=== PATIENT | male | born 1965 | race Caucasian/White ===

== ENCOUNTER 2020-01-07 21:03 | Emergency (ER) | payer MEDICARE, OTHER ==
[~2020-01-07] VITALS: Ht 175.3 cm; Wt 133.4 kg
[~2020-01-07 21:03] MED LIST: ACYCLOVIR400 MG PO; ALBUTEROL SULF8.5 GM INH; AMOXICILLIN500 MG PO; ATENOLOL25 MG PO; BACTRIM DS TAB1 EACH PO; CYMBALTA60 MG PO; FENOFIBRATE160 MG PO; GABAPENTIN300 MG PO; LANTUS100 UNIT/1 SUB-Q; LASIX40 MG PO; LEVOTHYROXINE100 MCG PO; LOVAZA1 GM PO; METFORMIN HCL1000 MG PO; MOTRIN800 MG PO; NORCO 7.5-3251 EACH PO; NORVIR100 MG PO; NOVOLOG100 UNITS/ SUB-Q; OMEPRAZOLE20 MG PO; POTASSIUM CHLO10 MEQ PO; PRAVACHOL40 MG PO; PROAIR HFA8.5 GM IH; PROMETHAZINE-COD5 ML PO; REYATAZ150 MG PO; TRAZODONE HCL150 MG PO; TRUVADA 200 MG1 EACH PO; ZITHROMAX500 MG PO; ZOFRAN ODT8 MG PO
--- OUTSIDE RECORDS SUMMARY | 2020-01-07 21:06 | XMS ---
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 EAntionette VISIT COUNT (12 MO.) 1 PATSY Chua TOTAL 1 NOTE: Visits indicate total known visits. ED/UCC VISIT TRACKING (12 MO.) 01/07/2020 21:03 PATSY Álvarez OR TYPE: Emergency COMPLAINT: - GLF INPATIENT VISIT TRACKING (12 MO.) No inpatient visits to display in this time frame [id number]
[2020-01-07] MEDS ORDERED: BIKTARVY 50-201 EACH PO (21:11)
[2020-01-07] MEDS ORDERED: BUPROPION XL150 MG PO (21:12)
[2020-01-07] MEDS ORDERED: LISINOPRIL20 MG PO (21:12)
[2020-01-07] MEDS ORDERED: ROSUVASTATIN CA20 MG PO (21:13)
[2020-01-07] MEDS ORDERED: VALACYCLOVIR500 MG PO (21:14)
[2020-01-07] MEDS ORDERED: CLONAZEPAM1 MG PO (21:15)
[2020-01-07] MEDS ORDERED: AMITRIPTYLINE H25 MG PO (21:16)
[2020-01-07] MEDS ORDERED: BUSPIRONE HCL5 MG PO (21:16)
[2020-01-07] MEDS ORDERED: FLUOXETINE HCL20 MG PO (21:17)
[2020-01-07] MEDS ORDERED: GABAPENTIN600 MG PO (21:17)
[2020-01-07] MEDS ORDERED: FUROSEMIDE40 MG PO (21:18)
[2020-01-07] MEDS ORDERED: PRAVASTATIN SOD40 MG PO (21:18)
[2020-01-07] MEDS ORDERED: POTASSIUM CHLO10 ME1 PO (21:18)
--- NOTE | 2020-01-08 17:54 | EKG ---
[facility] [address] [facility] [place], [place] [address] Signed Normal sinus rhythm Low voltage QRS Septal infarct , age undetermined Abnormal ECG No previous ECGs available Confirmed by CLAUDETTE CONNELLY MD ([id number]) on 01/08/2020 5:53:48 PM Electronically Signed By: CLAUDETTE CONNELLY MD 01/08/20 1754 PATIENT NAME: JESSENIA DAVENPORT Electrocardiogram DATE OF : 67 PHYSICIAN: CLAUDETTE CONNELLY MD REPORT #: [id number] REPORT IS CONFIDENTIAL AND NOT TO BE RELEASED WITHOUT AUTHORIZATION
== END 2020-01-08 00:03 | disposition home or self-care (01) ==
LOC: ED 21:03
DX: S01.01XA Laceration without foreign body of scalp, initial encounter (principal); F10.10 Alcohol abuse, uncomplicated; W18.30XA Fall on same level, unspecified, initial encounter; E03.9 Hypothyroidism, unspecified; E11.9 Type 2 diabetes mellitus without complications; I10 Essential (primary) hypertension; E78.00 Pure hypercholesterolemia, unspecified; Z87.891 Personal history of nicotine dependence; Z79.899 Other long term (current) drug therapy; Z79.84 Long term (current) use of oral hypoglycemic drugs
CPT/HCPCS: 12002; 70450; 71045; 72125; 80053; 84484; 85025; 93005; 93010; 99284-25

== ENCOUNTER 2020-01-18 13:27 | Emergency (ER) | payer MEDICARE, OTHER ==
[~2020-01-18] VITALS: Ht 175.3 cm; Wt 133.4 kg
[~2020-01-18 13:27] MED LIST changes: +AMITRIPTYLINE H25 MG PO; +BIKTARVY 50-201 EACH PO; +BUPROPION XL150 MG PO; +BUSPIRONE HCL5 MG PO; +CLONAZEPAM1 MG PO; +FLUOXETINE HCL20 MG PO; +FUROSEMIDE40 MG PO; +GABAPENTIN600 MG PO; +LISINOPRIL20 MG PO; +POTASSIUM CHLO10 ME1 PO; +PRAVASTATIN SOD40 MG PO; +ROSUVASTATIN CA20 MG PO; +VALACYCLOVIR500 MG PO
--- OUTSIDE RECORDS SUMMARY | 2020-01-18 13:30 | XMS ---
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 - 2 Visits in 30 Days CARE PROVIDERS YESENIA GAMBOA Nurse Practitioner: 01/11/2020-Current PHONE: Unknown MARYCHYU DURAND [facility] Current PHONE: Unknown Freddy has no Care Guidelines for this patient. Lazaro VISIT COUNT (12 MO.) 2 [facility] TOTAL 2 NOTE: Visits indicate total known visits. 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
== END 2020-01-18 14:08 | disposition home or self-care (01) ==
LOC: ED 13:27
DX: S01.01XD Laceration without foreign body of scalp, subsequent encounter (principal); W18.30XD Fall on same level, unspecified, subsequent encounter

== ENCOUNTER 2020-04-16 14:19 | Inpatient (IN) | payer MEDICARE, OTHER ==
[~2020-04-16] VITALS: Ht 175.3 cm; Wt 90.5 kg
--- OUTSIDE RECORDS SUMMARY | 2020-04-16 14:22 | XMS ---
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 Lazaro VISIT COUNT (12 MO.) 3 PATSY Chua TOTAL 3 NOTE: Visits indicate total known visits. 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
--- NOTE | 2020-04-16 17:45 | NUR ---
PATIENT BROUGHT FROM ED ON VENITALTOR WITH CARDIAC AND VITAL SIGN MONITOR IN PLACE BY THIS NURSE AND JANIYA RT, ON CART. TRANSFERRED FROM CART TO BED, REPOSITIONED AND LINENS REMOVED FROM UNDER PATIENT. PATIENT REMAINS ON VENTILATOR WITH IV MEDICATIONS INFUSING. ASSESSMENT COMPLETED.
--- NOTE | 2020-04-16 19:00 | NUR ---
IN TO SEE PATIENT. PROVIDED VERBAL ORDER TO DC SUICIDE WATCH UNTIL PATIENT IS OFF VENT.
--- NOTE | 2020-04-16 19:15 | NUR ---
UPDATE GIVEN TO POISON CONTROL. Q6H CMP REQUESTED ALONG WITH FREQUENT VS AND QT MONITORING.
--- NOTE | 2020-04-16 20:00 | NUR ---
RASS SCORE -3, KETAMINE AT 0.3 MG/KG. ORAL CARE DONE. PATIENT HAVING SOME COUGHING AND NOT TOLERATING VENT WELL. RR 26 OVER VENT SETTINGS OF 22 BPM. PRN FETANYL PROVIDED. BICARB INFUSING AT 150 ML/HR. IV SITES WNL. ABD IS MODERATELY DISTENDED. BOWEL SOUNDS ACTIVE. OG TUBE IN PLACE. HEEL PROTECTORS ON. PATIENT POSITIONED ON HIS BACK. WRIST RESTRAINTS REMOVED, ROM DONE. PATIENT BACK IN RESTRAINTS. EYE DROPS PROVIDED. HOB GREATER THAN 30 DEGREES. VENT SETTINGS: VT 500, FI02 45%, PEEP 8, RR 22. PIP 22. ETCO2 38.
--- NOTE | 2020-04-16 20:30 | NUR ---
THIRD IV SITE STARTED BY GUICHO SLOAN, LABS DRAWN. LR BOLUS STARTED. DISCUSSED ORAL MEDS WITH TELE PHARMACY. ACCORDING TO THEM THE ACTIVATED CHARCOLE HAS REACHED MAXIMUM EFFECT AND CAN BE REMOVED SO THAT OTHER ORAL MEDS CAN BE PROVIDED WITHOUT BEING BLOCKED BY EFFECTS. OG CONNECTED TO SUCTION AND LARGE AMOUNTS OF BLACK DRAINAGE NOTED. GREATER THAN 900 MLS.
--- NOTE | 2020-04-16 21:07 | NUR ---
PATIENT HAS BEEN HAVING COUGHING/GAGGING EPISODES. OG TUBE RESECURED. APPEARS GOOD PLACEMENT, CONTINUED TO PUT OUT BLACK DRAINAGE WHILE CONNECTED TO SUCTION. PATIENT IS MOVING HIS EYEBROWS IN RESPONCE TO HIS NAME AND APPEARS VERY TENSE. PRN FETANYL PROVIDED. TITRATED KETAMINE BACK TO 0.5 MG/KG.
--- NOTE | 2020-04-16 21:48 | NUR ---
DISCUSSED LAB VALUES AND PATIENT'S CURRENT STATUS WITH MD. ORDERS FOR ABG AND EKG RECEIVED. RT NOTIFIED. PATIENT HAS SETTLED AFTER LAST COUGHING FITS AND PRN SEDATION.
--- NOTE | 2020-04-17 00:49 | NUR ---
PATIENT IS IS HAVING SOME APPARENT INVOLUNTARY MOVEMENTS. DOES NOT RESPOND TO SOUND OR TOUCH. PATIENT IS WARM TO THE TOUCH, AXILLARY TEMP 100.2F. PRN TYLENOL PLACED DOWN THE OG TUBE. PRN FENTANYL PROVIDED AND KETAMINE TITRATED TO 0.8 MG/KG/HR. IV SITES WNL. DAVIDSON HAS 100 MLS VERY CLOWDY URINE WHICH IS CHANGED FROM PREVIOUS TIME. OUTPUT CONTINUES TO BE ABOUT 50 ML/HR.
--- NOTE | 2020-04-17 01:00 | NUR ---
EKG DONE PER POISON CONTROL REQUEST. PATIENT MEETS CRITERIA TO BE OFF BICARB. DISCUSSED WITH AND PATIENT SWITCHED TO LR AT 75 ML/HR. REPORTED SOME MUSCLE TWITCHING AND ONGOING COUGHING/GAGGING. PRN ATIVAN ADDED FOR SEDATION.
--- NOTE | 2020-04-17 02:40 | NUR ---
PATIENT CONTINUES TO BE RESTLESS. NOT FOLLOWING COMMANDS, MOVEMENT SEEMS INVOLUNTARY. PRN ATIVAN GIVEN AND KETAMINE INCREASED TO 1.2 MG/KG/HR. VS STABLE. PATIENT'S AXILLARY TEMP 100.5F. COOL WASH CLOTH APPLIED TO FOREHEAD. PATIENT FEELS HOT TO THE TOUCH. GOOD URINE OUTPUT. IV SITES WNL. SCHEDULED LABS DRAWN FROM IV SITE.
--- NOTE | 2020-04-17 03:48 | NUR ---
PATIENT BECOMING INCREASINGLY RESTLESS. APPEARS INVOLUNTARY MUSCLE MOVEMENTS. UNCHANGED WITH 2MG ATIVAN. PRN FETANYL ALSO PROVIDED. ORAL CARE DONE. PATIENT HAS MINIMAL SECREATIONS. REPOSITIONED TO LEFT SIDE. RESTRAINTS RELEASED, ROM DONE. GOOD URINE OUTPUT. URINE APPEARS MORE CLEAR YELLOW THAN PREVIOUS. VS STABLE. PATIENT CONTINUES TO HAVE ELEVATED AXILLARY TEMP, FRESH COOL WASH CLOTH APPLIED TO FORHEAD.
--- NOTE | 2020-04-17 05:05 | NUR ---
VENT ALARMING FOR LOW VENTALATION/MIN. CUFF LEAK HEARED. CUFF PRESSURE IS 0. PATIENT COUGHING AND JERKING IN THE BED. RT CALLED TO THE ROOM. AIR LEAK CONFIRMED. PRN SEDATION PROVIDED. REPORTED TO . ORDER TO REPLACE TUBE IF NEEDED. TAMMY CORNEJO IN HOUSE, WILL COME TO SEE PATIENT.
--- NOTE | 2020-04-17 05:58 | NUR ---
ET TUBE CHANGED OUT DUE TO AIR LEAK BY TAMMY CORNEJO. 8IN ET 24 @ THE LIP. PATIENT TOLERATED WELL. VS STABLE. SEDATION CONTINUES KETAMINE AT 1.2 MG/KG/HR. LR PER ORDER. SITES WNL. PLACEMENT CONFIRMED BY XRAY. OG TUBE STAYED IN PLACE AND RESECURED. VENT CHECK BY RT. DAVIDSON EMPTIED AT THIS TIME. GOOD URINE OUTPUT.
--- NOTE | 2020-04-17 06:19 | NUR ---
PT CUFF HAD LEAK. ETT TUBE WAS CHANGED TO SIZE 8, 24 @ LIP
[2020-04-17] MEDS ORDERED: HYDROXYZINE HCL25 MG PO (07:12)
[2020-04-17] MEDS ORDERED: CYCLOBENZAPRINE10 MG PO (07:14)
--- NOTE | 2020-04-17 07:30 | NUR ---
Report received, orders acknowledged. Patient intubated with ketamine gtt at 1.5mg/kg/hr. Patient restraints in place. Ventilator settings at 45% FiO2, 500VT, RR of 22, PEEP of 8.0, SpO2 of 99%, and EtCO2 of 42. No grimacing noted in patient facial expressions or restless activity in extremities. Patient has occassional movements in the hands. This RN remains in room to continue assessment.
--- NOTE | 2020-04-17 08:00 | NUR ---
Patient sedated and intubated. Ketamine gtt infusing at 1.5mg/kg/hr. LR infusing at 75 mls/hr. Patient appears calm, no facial grimacing noted. Slight restlessness noted in hands and feet. Vital signs taken, assessment complete. HR in the 90's, BPs in the 100-110's. Labs drawn and sent off. RT in room performing EKG. Axillary temp of 100.2. AM medications crushed and given per tube (see MAR). PRN tylenol given as well. Soft restraints in place on bilateral wrists. Quarles catheter emptied of 425 mls of yellow urine. Heel protectors in place, patient repositioned for comfort. Oral care performed. OG tube on intermittent suction, draining black contents. Patient visible from nurses station.
--- NOTE | 2020-04-17 08:30 | NUR ---
Dr. Joel in room to assess patient and discuss POC with nursing staff. Orders acknowledged.
--- NOTE | 2020-04-17 09:25 | NUR ---
IV mag and potassium hung at this time. Slight restlessness noted in feet and hands. RASS score remains at -3. Ketamine gtt infusing at 1.5mg/kg/hr. Patient visible from nurses station.
--- NOTE | 2020-04-17 10:10 | NUR ---
Dr. Joel in room to assess patient and discuss POC with nursing staff. Orders acknowledged.
--- NOTE | 2020-04-17 10:15 | NUR ---
Patient turned and positioned with pillow underneath left hip. Restraints released and range of motion exercises performed. New draw sheet and chux placed. Washed patient's back with warm wash cloth. Restraints back in place. Patient intubated and sedated. Patient visible from nurses station.
--- NOTE | 2020-04-17 10:25 | NUR ---
WAS NOT GETTING A READING OF PRESSURE FOR THE CUFF THIS AM, SUCTION THE MOUTH AND TOOK A 10CC SYRING AND DEFLATED CUFF AND REINFLATED THE CUFF , STILL WAS NOT GETTING A READING ,AUSCUTATION NO AIR LEAK NOTED, MINIMAL LEAK TECHNIQUE USED. , ENDTIDAL AND RETURN TIDAL VOLUMES ARE GOOO. RECHECKED CUFF PRESSURE AFTER REPOSITIONING AND WE ARE AT 25 WHICH IS ACEPTABLE. DOCTOR AND RNS AT BEDSIDE , WILL CONTINUE TO MONITOR THE PATIENT AND CUFF AND RN WILL CALL IF ANY LEAK IS NOTED .
--- NOTE | 2020-04-17 10:40 | NUR ---
Called poison control and spoke with Nathalia. Updated him on patient condition, including dyskinesia-like movements in lips and hands/feet. Poison control suggests potential of "break-through seizures" with these EPS symptoms, states "It's not likely from the flexeril or the amitriptyline." Recommended an EEG or speaking with the "tox doc" at poison control.
--- NOTE | 2020-04-17 11:00 | NUR ---
Updated Dr. Joel on conversation with poison control. Orders acknowledged to administer a one-time dose of 4mg ativan IV. Will monitor to see if dyskinesia-like movements subdue with medication administration.
--- NOTE | 2020-04-17 12:00 | NUR ---
Patient intubated and sedated. Ketamine gtt infusing at 1.5mg/kg/hr. LR infusing at 75 mls/hr. Vital signs taken, assessment complete. Quarles catheter emptied, urine output quantity sufficient. Restlessness noted in the hands and feet. 1215 - Patient agitation increasing. Patient now coughing and attempting to sit up in bed. Upper extremities resisting against restraints, lower legs are restless. Ketamine gtt increased to 2.0mg/kg/hr. BP increased to the 160's systolic during this period. After several minutes, patient appears more calm with only slight restless noted in hands and feet. Patient visible from nurses station.
--- NOTE | 2020-04-17 13:00 | NUR ---
Dr. Joel to unit to assess patient and discuss POC with nursing staff. Patient begins to cough and attempt to sit up in bed. Patient upper arms pulling against restraints and legs are restless. PRN ativan given. Orders acknowledged from Dr. Joel to transition patient to propofol gtt. BPs consistently in the 120-130's systolically. Propofol gtt initiated at 40mcg/kg/min. Ketamine gtt decreased from 2.5mg/kg/hr to 2.0mg/kg/hr. Patient visible from nurses station.
--- NOTE | 2020-04-17 14:45 | NUR ---
Propofol gtt titrated up to 40mcg/kg/min. Ketamine gtt decreased to 1.5mg/kg/hr. Patient appears calm in bed. No frown or grimace noted. No restlessness noted in patient's upper and lower extremities. HR in the 90's, BPs remain 110's systolically. Patient visible from nurses station.
--- NOTE | 2020-04-17 15:15 | NUR ---
This RN in room assessing patient. PIP noted to be 32-33. Inline suctioning about to be performed when it is noted that patient is apneic. Ventilator alarms "minute volume low." No respirations noted and patient color is turning prajapati. Patient begins being ventilated with ambu bag. RT called and responds quickly. As patient is being bagged, RT troubleshoots the ventilator machine. New parts are attached and tested, ventilator is working. At this time, BPs rise to 150-160's systolically. Patient SpO2 is 97-100% with use of ambu bag. Patient reconnected to ventilator and SpO2 remains 97%. PIP decreased to 26, minute volume and tidal volume within parameters.
--- NOTE | 2020-04-17 16:00 | NUR ---
Patient intubated and sedated. Propofol gtt increased to 50mcg/kg/min and ketamine gtt decreased to 1.0mg/kg/hr. Patient appears calm, no restless noted in extremities. Systolic BP in the 110's, HR in the 80's. Patient visible from nurses station.
--- NOTE | 2020-04-17 16:55 | NUR ---
RT in room to perform treatment (see MAR)
--- NOTE | 2020-04-17 17:15 | NUR ---
Patient's life partner, Juan José, is in room visiting with patient
--- NOTE | 2020-04-17 17:48 | EKG ---
[facility] [address] [facility] [place], [place] [address] Signed Sinus tachycardia Right bundle branch block Prolonged QTc Prolonged QRS Septal infarct (cited on or before 07-JAN-2020) Abnormal ECG When compared with ECG of 07-JAN-2020 22:45, Right bundle branch block is now present Confirmed by ANDRES MEYER DO ([id number]) on 04/17/2020 5:48:16 PM Electronically Signed By: ANDRES MEYER DO 04/17/20 1748 PATIENT NAME: JESSENIA DAVENPORT Electrocardiogram DATE OF : 67 PHYSICIAN: ANDRES MEYER DO REPORT #: [id number] REPORT IS CONFIDENTIAL AND NOT TO BE RELEASED WITHOUT AUTHORIZATION
--- NOTE | 2020-04-17 17:49 | EKG ---
[facility] [address] [facility] [place] [address] Signed Sinus tachycardia Nonspecific intraventricular block Possible Anterolateral infarct , age undetermined Prolonged QTc Abnormal ECG When compared with ECG of 16-APR-2020 16:57, (Unconfirmed) Questionable change in QRS duration Borderline criteria for Anterior infarct are now present Borderline criteria for Anterolateral infarct are now present Confirmed by ANDRES MEYER DO ([id number]) on 04/17/2020 5:49:20 PM Electronically Signed By: ANDRES MEYER DO 04/17/20 1749 PATIENT NAME: JESSENIA DAVENPORT Electrocardiogram DATE OF : 67 PHYSICIAN: ANDRES MEYER DO REPORT #: [id number] REPORT IS CONFIDENTIAL AND NOT TO BE RELEASED WITHOUT AUTHORIZATION
--- NOTE | 2020-04-17 17:49 | EKG ---
[facility] [address] [facility] [address] [place] [address] Signed Sinus tachycardia with short DE Left axis deviation QRS duration Prolonged QT Prolonged QTc Nonspecific intraventricular block Abnormal ECG When compared with ECG of 16-APR-2020 15:54, (Unconfirmed) DE interval has decreased Confirmed by ANDRES MEYER DO ([id number]) on 04/17/2020 5:48:58 PM Electronically Signed By: ANDRES MEYER DO 04/17/20 1749 PATIENT NAME: JESSENIA DAVENPORT Electrocardiogram DATE OF : 67 PHYSICIAN: ANDRES MEYER DO REPORT #: [id number] REPORT IS CONFIDENTIAL AND NOT TO BE RELEASED WITHOUT AUTHORIZATION
--- NOTE | 2020-04-17 17:49 | EKG ---
[facility] [address] [facility] [place] [address] Signed Sinus tachycardia Rightward axis Anteroseptal infarct (cited on or before 16-APR-2020) Abnormal ECG When compared with ECG of 16-APR-2020 18:52, (Unconfirmed) Sinus rhythm has replaced Junctional rhythm ST no longer elevated in Inferior leads Nonspecific T wave abnormality now evident in Inferior leads Confirmed by ANDRES MEYER DO ([id number]) on 04/17/2020 5:49:41 PM Electronically Signed By: ANDRES MEYER DO 04/17/20 1749 PATIENT NAME: JESSENIA DAVENPORT Electrocardiogram DATE OF : 67 PHYSICIAN: ANDRES MEYER DO REPORT #: [id number] REPORT IS CONFIDENTIAL AND NOT TO BE RELEASED WITHOUT AUTHORIZATION
--- NOTE | 2020-04-17 17:49 | EKG ---
[facility] [address] [facility] [place], [place] [address] Signed Accelerated Junctional rhythm Anterolateral infarct (cited on or before 16-APR-2020) Abnormal ECG When compared with ECG of 16-APR-2020 17:05, (Unconfirmed) Junctional rhythm has replaced Sinus rhythm QRS axis shifted right Confirmed by ANDRES MEYER DO ([id number]) on 04/17/2020 5:49:31 PM Electronically Signed By: ANDRES MEYER DO 04/17/20 1749 PATIENT NAME: ISSACJESSENIA Electrocardiogram DATE OF : 67 PHYSICIAN: ANDRES MEYER DO REPORT #: [id number] REPORT IS CONFIDENTIAL AND NOT TO BE RELEASED WITHOUT AUTHORIZATION
--- NOTE | 2020-04-17 17:50 | EKG ---
[facility] [address] [facility] [place], [place] [address] Signed Sinus tachycardia Rightward axis Anteroseptal infarct (cited on or before 16-APR-2020) Abnormal ECG When compared with ECG of 16-APR-2020 21:36, (Unconfirmed) No significant change was found Confirmed by ANDRES MEYER DO ([id number]) on 04/17/2020 5:49:46 PM Electronically Signed By: ANDRES MEYER DO 04/17/20 1750 PATIENT NAME: ISSACJESSENIA SANDRA Electrocardiogram DATE OF : 67 PHYSICIAN: ANDRES MEYER DO REPORT #: [id number] REPORT IS CONFIDENTIAL AND NOT TO BE RELEASED WITHOUT AUTHORIZATION
--- NOTE | 2020-04-17 18:00 | NUR ---
Patient minute volume low and ventilator alarm begins beeping. Patient is not breathing and color is prajapati. Patient begins being bagged with ambu bag, RT called for assistance. Ambu bag is difficult to squeeze with resistance, patient appears tense and face and neck are clenched. 2mg of IV ativan given. Dr. Joel notified and is on his way to the unit. Orders acknowledged for chest xray. Imaging in room to confirm placement of the ET tube. Patient at this time is able to be bagged with no resistance and is reconnected to the ventilator. All parameters on the ventilator are within correct limits and patient appears calm, skin color is improved. SpO2 of 100%.
--- NOTE | 2020-04-17 18:45 | NUR ---
Patient blood pressure in the low 80's systolic with propofol gtt at 60mcg/kg/min, which is titrated down to 50 mcg/kg/min. Will continue to monitor.
--- NOTE | 2020-04-17 19:30 | NUR ---
NOTIFIED STAFF OF TRANSFER OF PATIENT VIA [facility]. PRODUCT APPLICATIONS ENGINEER NOTIFED. [facility] CALLED BY THIS RN. PATIENT TOLERATING VENT AT THIS TIME. SOFT BP, TITRATED PROPOFOL FROM 50 MCG/KG TO 45 MCG/KG.
--- NOTE | 2020-04-17 20:11 | NUR ---
RT IN ROOM FOR ASSESSMENT AND ORAL CARE. LABS DRAWN FROM IV SITE. VS STABLE. RASS SCORE -3. VENT SETTINGS; VT 500, PEPP 8.0, PIP 26, ETCO2 30, SPO2 98%
--- NOTE | 2020-04-17 20:14 | NUR ---
GETTING PT READY TO [facility] AT THIS TIME.
--- NOTE | 2020-04-17 21:11 | NUR ---
2018 [facility] ARRIVED REPORT PROVIDED. RT IN ROOM FOR ASSIST. 2041 [facility] DEPARTURE. REPORTS CALLED TO JESSICA ARANA RN AT 2049.
--- NOTE | 2020-04-18 17:08 | EKG ---
[facility] [address] [facility] [address] [address] Signed Normal sinus rhythm Anteroseptal infarct (cited on or before 16-APR-2020) Wide QRS rhythm Abnormal ECG When compared with ECG of 17-APR-2020 00:53, (Unconfirmed) Nonspecific T wave abnormality, worse in Inferior leads Confirmed by ANDRES MEYER DO ([id number]) on 04/18/2020 5:08:17 PM Electronically Signed By: ANDRES MEYER DO 04/18/20 1708 PATIENT NAME: ISSACJESSENIA SANDRA Electrocardiogram DATE OF : 67 PHYSICIAN: ANDRES MEYER DO REPORT #: [id number] REPORT IS CONFIDENTIAL AND NOT TO BE RELEASED WITHOUT AUTHORIZATION
== END 2020-04-17 20:45 | disposition short-term general hospital (02) | DRG 917 ==
LOC: ED 14:19 → CCU 17:23
PROVIDERS: ADMIT Student in an Organized Health Care Education/Training Program; ATTEND Student in an Organized Health Care Education/Training Program
PROC: 0BH17EZ Insertion of Endotracheal Airway into Trachea, Via Natural or Artificial Opening (ICD-10-PCS; principal; 2020-04-16)
PROC: 5A1945Z Respiratory Ventilation, 24-96 Consecutive Hours (ICD-10-PCS; 2020-04-16)
DX: T48.1X2A Poisoning by skeletal muscle relaxants [neuromuscular blocking agents], intentional self-harm, initial encounter (principal); J96.91 Respiratory failure, unspecified with hypoxia; Z20.822 Contact with and (suspected) exposure to COVID-19; I45.10 Unspecified right bundle-branch block; R94.31 Abnormal electrocardiogram [ECG] [EKG]; R56.9 Unspecified convulsions; F39 Unspecified mood [affective] disorder; E78.5 Hyperlipidemia, unspecified; E03.9 Hypothyroidism, unspecified; E11.9 Type 2 diabetes mellitus without complications; I10 Essential (primary) hypertension; Z21 Asymptomatic human immunodeficiency virus [HIV] infection status; Z87.891 Personal history of nicotine dependence; Z79.899 Other long term (current) drug therapy; Z79.84 Long term (current) use of oral hypoglycemic drugs
CPT/HCPCS: 31500; 36415; 36600; 43752; 51702; 71045; 80053; 80176; 81001; 82550; 82803; 83605; 83690; 83735; 84100; 84484; 85025; 93005; 93010; 94002; 94640; 99285-25; C9803; J1650; J1815; J1953; J2060; J2704; J3010; J3475; J3480; J7030; J7060; J7121; U0003

== ENCOUNTER 2020-05-13 14:55 | Emergency (ER) | payer MEDICARE, OTHER ==
[~2020-05-13] VITALS: Ht 175.3 cm; Wt 81.2 kg
[~2020-05-13 14:55] MED LIST changes: +CYCLOBENZAPRINE10 MG PO; +HYDROXYZINE HCL25 MG PO
--- OUTSIDE RECORDS SUMMARY | 2020-05-13 14:58 | XMS ---
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 Lazaro VISIT COUNT (12 MO.) [address] [place] [address] TOTAL 4 NOTE: Visits indicate total known visits. 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 - Type 2 diabetes mellitus without complications - Essential (primary) hypertension - Alcohol abuse, uncomplicated - Laceration without foreign body of scalp, initial encounter - Pure hypercholesterolemia, unspecified - Fall on same level, unspecified, initial encounter INPATIENT VISIT TRACKING (12 MO.) 04/17/2020 21:09 [facility] TYPE: Critical Care DIAGNOSES: - Poisoning by unspecified drugs, medicaments and biological substances, intentional self-harm, subsequent encounter - Unspecified convulsions - Alcohol dependence with withdrawal, uncomplicated - Alcohol dependence with withdrawal delirium - Major depressive disorder, recurrent severe without psychotic features - Poisoning by unspecified drugs, medicaments and biological substances, intentional self-harm, initial encounter - Dysphagia, unspecified - seizures 04/16/2020 17:[address] 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 - Other intermediate (current) drug therapy - Hyperlipidemia, unspecified - Abnormal electrocardiogram [ECG] [EKG] - Unspecified convulsions - Hyperlipidemia, unspecified - Unspecified mood [affective] disorder - Respiratory failure, unspecified with hypoxia - Unspecified convulsions - Essential (primary) hypertension - Hypothyroidism, unspecified - Poisoning by skeletal muscle relaxants [neuromuscular blocking agents], intentional self-harm, initial encounter - Abnormal electrocardiogram [ECG] [EKG] - Personal history of nicotine dependence - Personal history of nicotine dependence - Unspecified right bundle-branch block - Type 2 diabetes mellitus without complications - Hypothyroidism, unspecified - Type 2 diabetes mellitus without complications - Respiratory failure, unspecified with hypoxia - Unspecified right bundle-branch block - Essential (primary) hypertension - 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
== END 2020-05-13 15:33 | disposition home or self-care (01) ==
LOC: ED 14:55
DX: I80.8 Phlebitis and thrombophlebitis of other sites (principal); E03.9 Hypothyroidism, unspecified; E11.9 Type 2 diabetes mellitus without complications; I10 Essential (primary) hypertension; Z87.891 Personal history of nicotine dependence; Z79.899 Other long term (current) drug therapy; Z79.84 Long term (current) use of oral hypoglycemic drugs
CPT/HCPCS: 99282

== ENCOUNTER 2022-03-05 13:56 | Emergency (ER) | payer MEDICARE, OTHER ==
[~2022-03-05] VITALS: Ht 175.3 cm; Wt 93.0 kg
[~2022-03-05 13:56] MED LIST changes: +ARNUITY ELLIPT50 MCG INH; +CARBIDOPA-LEVO1 EAC9 PO; +CLONAZEPAM2 MG PO; +COMBIVENT RESPIM4 GM INH; +DIVALPROEX SOD500 M1 PO; +GUANFACINE HCL E3 MG PO; +KETOCONAZOLE120 ML TOP; +LAMOTRIGINE100 MG PO; +LEVOTHYROXINE100 MC2 PO; +LORATADINE10 MG PO; +NALTREXONE HCL50 MG PO; +OZEMPIC1 MG/0.71 SQ; +PROPRANOLOL HCL10 MG PO; +QUETIAPINE FUM300 MG PO; +ROPINIROLE HCL0.5 MG PO; +SUDOGEST60 MG PO; +TRIUMEQ TABLET1 EACH PO; +VITAMIN B122500 MCG PO
--- OUTSIDE RECORDS SUMMARY | 2022-03-05 13:58 | XMS ---
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 - Patient with suicidal and/or homicidal ideations eloped. - Patient eloped with IV in place. Details: PATIENT LWBS CRITERIA MET - [facility] CARE PROVIDERS MARYCHUY DURAND [facility] Current PHONE: Unknown Freddy has no Care Guidelines for this patient. Lazaro VISIT COUNT (12 MO.) 4 [facility] TOTAL 4 NOTE: Visits indicate total known visits. 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 - Fall on same level from slipping, tripping and stumbling without subsequent striking against object, initial encounter - Essential (primary) hypertension - Guillain-[place] syndrome - Hypothyroidism, unspecified - Unspecified abdominal pain - Type 2 diabetes mellitus without complications - Personal history of nicotine dependence - Contusion of abdominal wall, initial encounter 07/31/2021 22:11 [facility] TYPE: Emergency COMPLAINT: - OD ACCIDENTAL INPATIENT VISIT TRACKING (12 MO.) 07/31/2021 22:12 [facility] TYPE: Observation COMPLAINT: - ACCIDENTAL OVERDOSE DIAGNOSES: - Poisoning by loop [high-ceiling] diuretics, accidental (unintentional), initial encounter - Unspecified dementia, unspecified severity, without behavioral disturbance, psychotic disturbance, mood disturbance, and anxiety - Poisoning by other antiepileptic and sedative-hypnotic drugs, accidental (unintentional), initial encounter - Poisoning by antiallergic and antiemetic drugs, accidental (unintentional), initial encounter - Poisoning by insulin and oral hypoglycemic [antidiabetic] drugs, accidental (unintentional), initial encounter - Hypothyroidism, unspecified - Other toxic encephalopathy - Type 2 diabetes mellitus without complications - Poisoning by cxwfrgtkvjy-ypgpubbypt-uqgqph inhibitors, accidental (unintentional), initial encounter - Poisoning by beta-adrenoreceptor antagonists, accidental (unintentional), initial encounter - Poisoning by analeptics and opioid receptor antagonists, accidental (unintentional), initial encounter - Poisoning by selective serotonin reuptake inhibitors, accidental (unintentional), initial encounter - Poisoning by antiviral drugs, accidental (unintentional), initial encounter - Poisoning by other antipsychotics and neuroleptics, accidental (unintentional), initial encounter - Poisoning by electrolytic, caloric and water-balance agents, accidental (unintentional), initial encounter - Poisoning by antihyperlipidemic and antiarteriosclerotic drugs, accidental (unintentional), initial encounter - Personal history of nicotine dependence - Essential (primary) hypertension - Poisoning by expectorants, accidental (unintentional), initial encounter - Contact with and (suspected) exposure to COVID-19 [email or web address]
[2022-03-05] MEDS ORDERED: HYDROCODON-ACE1 EA10 PO (15:19)
== END 2022-03-05 16:41 | disposition home or self-care (01) ==
LOC: ED 13:56
DX: S62.614A Displaced fracture of proximal phalanx of right ring finger, initial encounter for closed fracture (principal); S62.632A Displaced fracture of distal phalanx of right middle finger, initial encounter for closed fracture; S62.660A Nondisplaced fracture of distal phalanx of right index finger, initial encounter for closed fracture; E03.9 Hypothyroidism, unspecified; E11.9 Type 2 diabetes mellitus without complications; I10 Essential (primary) hypertension; E78.00 Pure hypercholesterolemia, unspecified; Z87.891 Personal history of nicotine dependence; Z79.899 Other long term (current) drug therapy; Z79.84 Long term (current) use of oral hypoglycemic drugs; W10.9XXA Fall (on) (from) unspecified stairs and steps, initial encounter
CPT/HCPCS: 29130; 73130; 99283-25

== ENCOUNTER 2024-06-15 09:54 | Inpatient (IN) | payer MEDICARE, OTHER ==
[~2024-06-15] VITALS: Ht 175.3 cm; Wt 113.8 kg
[~2024-06-15 09:54] MED LIST changes: +DULOXETINE HCL60 MG PO; +HYDROCODON-ACE1 EA10 PO; +INGREZZA80 MG PO; +JARDIANCE25 MG PO; +QUETIAPINE FUMA50 MG PO
[2024-06-15] MEDS ORDERED: ALBUTEROL/IPRATROPIUM 3 ML NEB INH PRN (10:15)
[2024-06-15 10:31] LABS: BASOPHILS 0.4 % (0-2); EOSINOPHILS 5.7 % (0-6); HEMATOCRIT 44.6 % (35.0-50.0); HEMOGLOBIN 15.1 g/dL (12.0-18.0); LYMPHOCYTES 21.7 % (24-44); MCH 31.4 (27-36); MCHC 33.8 g/dl (30-36); MCV 92.9 fl (81-99); MONOCYTES 7.2 % (0-12); PLATELET COUNT 149 K/uL (140-440); RDW 14.8 (10.5-15.0)
[2024-06-15 10:54] LABS: ALBUMIN 3.7 g/dL (3.4-5.0); ALBUMIN/GLOBULIN RATIO 1.06 (1.1-2.4); ANION GAP 6.2 (7-21); BILIRUBIN, TOTAL 0.3 mg/dL (0.2-1.0); BUN/CREATININE RATIO 16.07 (6.0-28.6); CALCIUM 8.5 mg/dL (8.5-10.1); CREATININE, SERUM 1.68 mg/dL (0.70-1.30); MAGNESIUM 2.3 mg/dL (1.8-2.4); POTASSIUM 4.2 mmol/L (3.5-5.1); PROTEIN, TOTAL 7.2 g/dL (6.4-8.2)
[2024-06-15] MEDS ORDERED: TEMAZEPAM30 MG PO (11:57)
[2024-06-15] MEDS ORDERED: CELECOXIB200 MG PO (11:58)
[2024-06-15] MEDS ORDERED: CELECOXIB100 MG PO (11:58)
[2024-06-15] MEDS ORDERED: INGREZZA40 MG PO ×2 (11:59→12:03)
[2024-06-15] MEDS ORDERED: LANTUS SOL100 UNIT/1 SUB-Q (11:59)
[2024-06-15] MEDS ORDERED: FARXIGA10 MG PO (12:00)
[2024-06-15] MEDS ORDERED: GLIPIZIDE ER10 MG PO (12:00)
[2024-06-15] MEDS ORDERED: METFORMIN HCL500 MG PO (12:00)
[2024-06-15] MEDS ORDERED: MOUNJARO5 MG/0.5 M SUB-Q (12:01)
[2024-06-15] MEDS ORDERED: ESZOPICLONE3 MG PO (12:01)
[2024-06-15] MEDS ORDERED: FUROSEMIDE 40 MG/4 ML VIAL IV ONE (12:30)
[2024-06-15] MEDS ORDERED: DEXTROSE 5% 1,000 ML IV PRN (15:45)
[2024-06-15] MEDS ORDERED: DEXTROSE 50% 50 ML SYR IV PRN ×2 (15:45)
[2024-06-15] MEDS ORDERED: ondansetron HCL 4 MG/2 ML VIAL IV PRN (15:45)
[2024-06-15] MEDS ORDERED: IBLOOD GLUCOSE TEST STRIP 1 EA TEST XX PRN (15:45)
[2024-06-15] MEDS ORDERED: GLUCAGON,HUMAN RECOMBINANT 1 MG/ML VIAL SUB-Q PRN (15:45)
[2024-06-15] MEDS ORDERED: ACETAMINOPHEN 325 MG TAB PO PRN (15:45)
[2024-06-15] MEDS ORDERED: bisacodyL 10 MG SUPP PR PRN (15:45)
[2024-06-15] MEDS ORDERED: AZITHROMYCIN 250 MG TAB PO SCH (15:46)
[2024-06-15] MEDS ORDERED: CEFTRIAXONE SODIUM 2 GM in SODIUM CHLORIDE 0.9% 100 ML IV SCH (15:46)
[2024-06-15 16:14] LABS: INFLUENZA B NAA NEGATIVE (NEGATIVE); RESPIRATORY SYNCYTIAL VIR NAA NEGATIVE (NEGATIVE)
[2024-06-15 16:28] VITALS: BP 159/90
--- NOTE | 2024-06-15 16:30 | NUR ---
PT ARRIVED TO MED SURG RM 107 VIA STRETCHER, PT WAS ABLE TO AMBULATE TO BED, SBA, W/O DIFFICULTY. PT ORIENTED TO CALL LIGHT IN REACH.
--- NOTE | 2024-06-15 16:42 | NUR ---
PATIENT IN BED AT THIS TIME. JEWELRY DIPPER TOOK PATIENTS BLOOD SUGAR. RN CJ NOTIFIED. CALL LIGHT WITHIN REACH, NO FURTHER NEEDS.
[2024-06-15] MEDS ORDERED: SEROQUEL300 MG PO (16:46)
[2024-06-15] MEDS ORDERED: INSULIN LISPRO 100 UNIT/ML ML SUB-Q SCH (17:00)
[2024-06-15] MEDS ORDERED: IBLOOD GLUCOSE TEST STRIP 1 EA TEST VI SCH (17:00)
--- NOTE | 2024-06-15 17:20 | NUR ---
PT IN CHAIR EATING DINNER, DENIES NEEDS. CALL LIGHT IN REACH
--- NOTE | 2024-06-15 17:23 | NUR ---
medications reconciled using pharmacy records and patient interview
[2024-06-15 17:32] VITALS: BP 159/90
[2024-06-15 17:58] VITALS: BP 140/86
--- NOTE | 2024-06-15 17:59 | EKG ---
[facility] [address] [place] [address] Signed Normal sinus rhythm Low voltage QRS Septal infarct (cited on or before 10-APR-2023) Abnormal ECG When compared with ECG of 10-APR-2023 14:54, QRS axis shifted right Confirmed by Sly Kinney DO ([id number]) on 06/15/2024 5:59:21 PM Electronically Signed By: SLY KINNEY DO 06/15/24 1759 PATIENT NAME: ISSACJESSENIA Electrocardiogram DATE OF : 67 PHYSICIAN: SLY KINNEY DO REPORT #: [id number] REPORT IS CONFIDENTIAL AND NOT TO BE RELEASED WITHOUT AUTHORIZATION
--- NOTE | 2024-06-15 18:00 | NUR ---
PATIENT IN BED AT THIS TIME. SHERIFF DEPUTY CHARTED VITALS AND I&O'S. CALL LIGHT WITHIN REACH, NO FURTHER NEEDS AT THIS TIME.
[2024-06-15 18:02] VITALS: BP 140/86
[2024-06-15 19:00] LABS: CHOLESTEROL 162 mg/dL (<200); CHOLESTEROL/HDL RATIO 4.9; HDL CHOLESTEROL 33 (40-60); TRIGLYCERIDES 655 ng/dL (<150)
--- NOTE | 2024-06-15 19:22 | NUR ---
REPORT RECEIVED FROM DAY SHIFT RN. PT LYING IN BED ALERT AND ORIENTED. UP TO BR WITH SBA TO VOID. BACK TO BED, AMALIA WELL. 2L/NC IN PLACE. SpO2 LOW 90'S. NO FURTHER NEEDS. WHITE BOARD UPDATED. CALL LIGHT IN REACH.
[2024-06-15 20:36] VITALS: BP 127/62
[2024-06-15 20:45] VITALS: BP 127/62
[2024-06-15] MEDS ORDERED: HEParin SOD (PORCINE) 5,000 UNIT/ML SDV SUB-Q SCH (21:00)
[2024-06-15] MEDS ORDERED: MELATONIN 3 MG TAB PO PRN (21:00)
[2024-06-15] MEDS ORDERED: QUETIAPINE FUMARATE 100 MG TAB PO SCH (21:00)
[2024-06-15] MEDS ORDERED: TEMAZEPAM 15 MG CAP PO SCH (21:00)
[2024-06-15] MEDS ORDERED: GABAPENTIN 300 MG CAP PO SCH (21:00)
--- NOTE | 2024-06-15 21:15 | NUR ---
EVENING ASSESSMENT COMPLETE. SCHEDULED MEDS ADMIN PER EMAR. PT DENIES PAIN OR NAUSEA. DENIES SOB. 2L/NC IN PLACE. SpO2 LOW 90'S. FINE CRACKLES AUSCULATED BLL. EDEMA NOTED BLE. PT PARTNER EDYTA IN HOME BIKTARVY. BOTTLE LABELED WITH PT STICKER AND PLACED IN PT BIN IN MED ROOM. PT DENIES QUESTIONS OR CONCERNS. CALL LIGHT IN REACH. BED ALARM FOR SAFETY. CPOX IN PLACE.
--- NOTE | 2024-06-15 23:18 | NUR ---
PT WAS UNCOMFORTABLE WITH HOSPITAL GOWN ON. CDL SERVICE TECHNICIAN TOOK GOWN OFF AND UNTANGLED THE SHEETS. PT STATED THAT HE WAS MORE COMFORTABLE.
--- NOTE | 2024-06-16 00:16 | NUR ---
PT RESTING IN BED WITH EYES CLOSED. RESPIRATIONS EVEN. SpO2 LOW 90'S ON 2L/NC. HR 80'S.
[2024-06-16 01:19] VITALS: BP 113/58
--- NOTE | 2024-06-16 01:20 | NUR ---
CPOX ALARMING. SpO2 85% WITH 2L/NC IN PLACE. PT SNORING SOFTLY. PT AWAKENS EASILY. SpO2 QUICKLY UP TO MID 90'S WITH 2L. PT REPORTS HISTORY OF SLEEP APNEA BUT STATES, "I CAN'T SLEEP WITH THE MASK." PT DENIES SOB. HOB ELEVATED. VS OBTAINED, WNL. NO FURTHER NEEDS. BED ALARM IN PLACE. CALL LIGHT IN REACH.
--- NOTE | 2024-06-16 02:48 | NUR ---
PT RESTING IN BED WITH EYES CLOSED. RESPIRATIONS EVEN. CALL LIGHT IN REACH. BED ALARM IN PLACE.
--- NOTE | 2024-06-16 03:54 | NUR ---
BED ALARM SOUNDING. PT UP TO BR WITH SBA TO VOID AN UNMEASURED AMOUNT. GAIT STEADY. DAILY WEIGHT OBTAINED. BACK TO BED, AMALIA WELL. 2L/NC IN PLACE. SpO2 MID 90'S. PT DENIES SOB. ASSESSMENT COMPLETE. NO FURTHER NEEDS. BED ALARM FOR SAFETY. CALL LIGHT IN REACH.
[2024-06-16 05:09] VITALS: BP 110/58
--- NOTE | 2024-06-16 05:20 | NUR ---
VS AND I&O OBTAINED. SCHEDULED MEDS ADMIN PER EMAR. PT DENIES PAIN OR NAUSEA. DENIES SOB. ASSISTED TO REPOSITION. NO FURTHER NEEDS. BED ALARM IN PLACE. CALL LIGHT IN REACH.
[2024-06-16 05:30] VITALS: BP 110/58
[2024-06-16 06:09] LABS: BASOPHILS 1.5 % (0-2); EOSINOPHILS 6.6 % (0-6); HEMATOCRIT 43.5 % (35.0-50.0); HEMOGLOBIN 14.7 g/dL (12.0-18.0); LYMPHOCYTES 30.9 % (24-44); MCH 31.4 (27-36); MCHC 33.7 g/dl (30-36); MCV 93.2 fl (81-99); MONOCYTES 7.7 % (0-12); NEUTROPHILS 53.3 % (39-80); PLATELET COUNT 166 K/uL (140-440); RBC 4.66 M/ul (4.3-5.7); RDW 15.1 (10.5-15.0)
[2024-06-16 06:25] LABS: ALBUMIN 3.7 g/dL (3.4-5.0); ALBUMIN/GLOBULIN RATIO 1.09 (1.1-2.4); ANION GAP 10.9 (7-21); BILIRUBIN, TOTAL 0.3 mg/dL (0.2-1.0); BUN/CREATININE RATIO 19.65 (6.0-28.6); CALCIUM 8.5 mg/dL (8.5-10.1); CREATININE, SERUM 1.17 mg/dL (0.70-1.30); MAGNESIUM 2.3 mg/dL (1.8-2.4); POTASSIUM 3.9 mmol/L (3.5-5.1); PROTEIN, TOTAL 7.1 g/dL (6.4-8.2)
[2024-06-16] MEDS ORDERED: LEVOTHYROXINE SODIUM 100 MCG TAB PO SCH (07:00)
--- NOTE | 2024-06-16 07:19 | NUR ---
REPORT RECEIVED FROM NATHALIA BARRON. PT AWAKE AND ALERT IN RECLINER, CHAIR ALARM IN PLACE, SPOUSE IN ROOM. NO REQUESTS AT THIS TIME.
--- NOTE | 2024-06-16 07:51 | NUR ---
PATIENT IN BED AT THIS TIME. THIS CAKE DECORATOR CHARTED BLOOD SUGAR AND NOTIFIED NATHALIA DOMINGUEZ. CALL LIGHT WITHIN REACH, NO FURTHER NEEDS.
[2024-06-16] MEDS ORDERED: FUROSEMIDE 40 MG/4 ML VIAL IV SCH (09:00)
[2024-06-16] MEDS ORDERED: lisinopriL 20 MG TAB PO SCH (09:00)
[2024-06-16] MEDS ORDERED: PATIENT'S OWN MEDICATION(S) ORDER PO SCH (09:00)
[2024-06-16] MEDS ORDERED: PROPRANOLOL HCL 20 MG TAB PO SCH ×2 (09:00)
[2024-06-16] MEDS ORDERED: VALACYCLOVIR HCL 500 MG TAB PO SCH (09:00)
[2024-06-16 09:01] VITALS: BP 142/72
--- NOTE | 2024-06-16 09:13 | NUR ---
Patient titrated to room air, respirations non labored, spo2 90%. Patient denies shortness of breath. Patient reports he wants to discharge home this morning. Education provided regarding plan of care.
--- NOTE | 2024-06-16 09:24 | NUR ---
UR CLINICAL REVIEW: 2 MN FOR [facility] CONSTABLE MEET INPT FOR CHF/AHRF WITH NEED FOR ONGOING TREATMENT MEDICARE INPT 06/15/24 @ 1548 ORDER MATCHES REG NO AUTH REQUIRED PER MEDICARE GUIDELINES DISCHARGE TO HOME WHEN STABLE ANTICIPATE 1-2 DAYS
[2024-06-16 09:37] VITALS: BP 142/81
--- NOTE | 2024-06-16 09:38 | NUR ---
PATIENT IN BED AT THIS TIME. SEAMLESS TUBE ROLLER CHARTED VITALS AND I&O'S. CALL LIGHT WITHIN REACH, NO FURTHER NEEDS AT THIS TIME.
[2024-06-16 10:00] VITALS: BP 142/81
--- NOTE | 2024-06-16 11:00 | NUR ---
Spoke with Babak. He denies needs and wants to go home. States friends family sick, he and they have recovered. He feels he has also recovered. 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 He denies other needs. SO in the room. Home when cleared by . Pt does not use any DME. No safety concerns.
--- NOTE | 2024-06-16 11:06 | NUR ---
PATIENT SITTING AT EDGE OF BED AT THIS TIME. SAP BASIS CHARTED HOURLY ROUNDS. CALL LIGHT WITHIN REACH, NO FURTHER NEEDS AT THIS TIME.
[2024-06-16] MEDS ORDERED: PHARMACY RENAL DOSE ADJUSTMENT 1 DOSE MISC PO SCH (12:00)
--- NOTE | 2024-06-16 12:25 | NUR ---
VISITED DURING SPIRITUAL CARE ROUNDS. PT SUPPORTED BY SPOUSE IN ROOM. BOTH IN RELATIVELY GOOD SPIRITS, NO IMMEDIATE NEEDS. APPRAISER AUDITOR PROVIDED SUPPORTIVE PRESENCE, HOSPITALITY, PRAYER, FACILITATED INTERACTION WITH THERAPY ANIMAL. PT AND SPOUSE EXPRESSED GRATITUDE.
[2024-06-16] MEDS ORDERED: CEFDINIR300 MG PO (12:54)
[2024-06-16] MEDS ORDERED: AZITHROMYCIN500 MG PO (12:55)
[2024-06-17 13:02] LABS: % CD4 32 % (32-64); ABSOLUTE CD4 640 cells/uL (430-1800)
== END 2024-06-16 13:10 | disposition home or self-care (01) | DRG 974 ==
LOC: ED 09:54 → MS 16:02
PROVIDERS: Emergency Medicine; ADMIT Student in an Organized Health Care Education/Training Program; ATTEND Student in an Organized Health Care Education/Training Program
DX: J18.9 Pneumonia, unspecified organism (principal); J96.01 Acute respiratory failure with hypoxia; B20 Human immunodeficiency virus [HIV] disease; G61.0 Guillain-Barre syndrome; N17.9 Acute kidney failure, unspecified; F03.93 Unspecified dementia, unspecified severity, with mood disturbance; E03.9 Hypothyroidism, unspecified; I11.0 Hypertensive heart disease with heart failure; I50.9 Heart failure, unspecified; E11.40 Type 2 diabetes mellitus with diabetic neuropathy, unspecified; I25.10 Atherosclerotic heart disease of native coronary artery without angina pectoris; E78.00 Pure hypercholesterolemia, unspecified; Z79.899 Other long term (current) drug therapy; Z79.1 Long term (current) use of non-steroidal anti-inflammatories (NSAID); Z79.84 Long term (current) use of oral hypoglycemic drugs; Z79.85 Long-term (current) use of injectable non-insulin antidiabetic drugs; Z79.890 Hormone replacement therapy; Z79.4 Long term (current) use of insulin
CPT/HCPCS: 36415; 71045; 71260; 80053; 80061; 83735; 83880; 84484; 85025; 87502; 93005; 93010; 93306; 94640; 94667; 94668; 94762; 97165; 99285-25; A9270; J0696; J1644; J1815; J1938; Q9967; U0002